=== PATIENT | male | born 1965 | race Two or more races ===

== ENCOUNTER 2018-09-14 12:11 | Outpatient (CLI) | payer OTHER ==
[~2018-09-14 12:11] MED LIST: GLUCOPHAGE XR500 MG; LIPITOR20 MG; TRICOR145 MG
== END 2018-09-14 12:27 | disposition home or self-care (01) ==
LOC: RAD 12:11
DX: N30.01 Acute cystitis with hematuria (principal); R10.9 Unspecified abdominal pain; R10.12 Left upper quadrant pain; K86.1 Other chronic pancreatitis

== ENCOUNTER 2018-09-15 09:55 | Outpatient (CLI) | payer OTHER | END 2018-09-15 09:56 | disposition home or self-care (01) | LOC: SONOGRAMA 09:55 | DX: N30.01 Acute cystitis with hematuria (principal); R10.9 Unspecified abdominal pain; R10.12 Left upper quadrant pain; K86.1 Other chronic pancreatitis ==

== ENCOUNTER 2022-11-04 13:31 | Outpatient (CLI) | payer OTHER | END 2022-11-04 13:32 | disposition home or self-care (01) | LOC: NUCLEAR 13:31 | PROVIDERS: ATTEND Internal Medicine Sports Medicine | DX: I82.409 Acute embolism and thrombosis of unspecified deep veins of unspecified lower extremity (principal); R60.0 Localized edema ==

== ENCOUNTER 2023-05-01 09:23 | Outpatient (CLI) | payer OTHER ==
[2023-05-03] MEDS ORDERED: CHILDREN'S ASPI81 MG PO (15:02)
== END 2023-05-01 09:34 | disposition home or self-care (01) ==
LOC: LAB 09:23
PROVIDERS: ATTEND Otolaryngology Otology & Neurotology
DX: J33.0 Polyp of nasal cavity (principal); J34.3 Hypertrophy of nasal turbinates

== ENCOUNTER 2023-05-07 07:20 | Day surgery (SDC) | payer OTHER ==
[~2023-05-07 07:20] MED LIST changes: +CHILDREN'S ASPI81 MG PO
[2023-05-07] MEDS ORDERED: AYR SALINE50 ML NASAL (11:15)
== END 2023-05-07 14:35 | disposition home or self-care (01) ==
LOC: CIR.AMB 07:20
PROVIDERS: ATTEND Otolaryngology Otology & Neurotology
DX: J33.0 Polyp of nasal cavity (principal); J34.3 Hypertrophy of nasal turbinates; J32.4 Chronic pansinusitis; J33.9 Nasal polyp, unspecified; Z20.822 Contact with and (suspected) exposure to COVID-19